=== PATIENT | female | born 1985 | race Caucasian/White ===

== ENCOUNTER 2017-08-13 08:43 | Outpatient (CLI) | payer OTHER | END 2017-08-13 08:46 | disposition home or self-care (01) | LOC: SONOGRAMA 08:43 | DX: E04.1 Nontoxic single thyroid nodule (principal) ==

== ENCOUNTER 2018-03-18 09:44 | Outpatient (CLI) | payer OTHER | END 2018-03-18 09:48 | disposition home or self-care (01) | LOC: SONOGRAMA 09:44 | DX: R22.1 Localized swelling, mass and lump, neck (principal) ==

== ENCOUNTER 2020-11-22 09:12 | Outpatient (CLI) | payer OTHER | END 2020-11-22 11:10 | disposition home or self-care (01) | LOC: SONOGRAMA 09:12 | PROVIDERS: ATTEND Pathology Anatomic Pathology & Clinical Pathology | DX: D37.030 Neoplasm of uncertain behavior of the parotid salivary glands (principal) ==